=== PATIENT | male | born 1945 | race Caucasian/White ===

== ENCOUNTER → 2017-02-21 | Outpatient (CLI) | payer OTHER ==
[~2017-02-21] MED LIST: ALLOPURINOL 10100 M2 PO; ASPIR 8181 MG PO; BEE POLLEN580 MG PO; CLARITIN10 MG PO; COZAAR 50 MG TA50 M2 PO; LASIX 20 MG TAB20 MG PO; LEVOTHYROXINE0.05 MG PO; MOBIC15 MG PO; OMEPRAZOLE 20 M20 M1 PO; REQUIP3 MG PO; TOPROL XL50 MG PO; TRAMADOL 50 MG50 MG PO
== END ==
LOC: CAT 02:13
DX: M47.816 Spondylosis without myelopathy or radiculopathy, lumbar region (principal); M54.2 Cervicalgia; M77.8 Other enthesopathies, not elsewhere classified

== ENCOUNTER → 2017-03-08 | Outpatient (CLI) | payer OTHER ==
[~2017-03-08] VITALS: Ht 172.7 cm; Wt 117.9 kg
[~2017-03-08] MED LIST changes: +COUMADIN 5 MG TA5 M1 PO; +FLECAINIDE ACET50 M1 PO; +MEDROL DOSPAK21 TA1 PO; +NEURONTIN 300300 M1 PO; +VOLTAREN GEL 1100 GM TOP
--- NOTE | ~2017-03-08 | HPC ---
[facility] [address] [place] [address] PAIN MANAGEMENT CONSULTATION Name: LUPERADHA Lynne Room #: REG BLUE Rupal#: [id number] Admission: 03/08/17 Attend Phys: Palmer Dejesus DO Discharge: Date of : 45 Report #: [id number] THIS REPORT FOR: //name// CC: Gonzalez Dejesus The patient is a very pleasant 72-year-old gentleman seen in consultation at the request of Dr. Adame for assistance with management of right cervical radicular pain. The patient notes paresthesia going into the thumb and index finger on this side present for about the past 2 months. It sounds like he has had multiple steroid injections with good efficacy. Last bilateral shoulder injection was about 2 months ago. He had also developed exacerbation of gout in his right foot and did have an IM injection of steroid on Saturday. He notes with this the cervical radicular symptoms are improving somewhat, but they remain problematic with tingling, paresthesia and some subjective loss of strength in that right hand. He notes pain is rhythmic and sharp, rates it anywhere from a 4-8 on a 0-10 visual analog scale. Denies any myelopathic or lower extremity symptoms. REVIEW OF SYSTEMS: Complete review of systems attached to chart and gone over with the patient. The patient is , seen in the company of his who is supportive. Smokes which he has for 30 years. He drinks alcohol socially. History of a pacemaker for sick sinus syndrome, recently diagnosed with atrial fibrillation and started on Coumadin. History of hypertension, treated with metoprolol, losartan and Lasix, hypothyroid for which he takes Synthroid, gastroesophageal reflux for which he takes omeprazole. Does have significant restless leg syndrome, takes ReQuip 3 mg at bedtime with some efficacy. As noted in the chief complaint, has history of gout, right ankle and takes allopurinol for this. He was taking Mobic for pain, but had to stop this when he started the warfarin for his atrial fibrillation. Does take tramadol for pain. Surgical history was reviewed, he has had a colostomy in 1984 for diverticulitis, had the colostomy reversed several months later. He has had colon resection again in 2008 and in 2009. He has been off work for 6 weeks due to pain. 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 Showed me pictures of his 1959 Corvette and tells me he is restoring his 65 [place] [employer] for his . PHYSICAL EXAMINATION: Reveals a pleasant 72-year-old gentleman, 5 feet 8 inches, 260 pounds, relatively obese with a BMI of 39.5 kilograms per meter squared. Significant endomorphic stature. Blood pressure is 159/79, pulse 82, respirations 20. Cranial nerves 2-12 are grossly intact. Pupils are equal, reactive to light and accommodation. Extraocular muscles are intact. Thyroid is modestly enlarged, no nodules are noted. Upper extremity strength had [facility] [address] [place] [address] PAIN MANAGEMENT CONSULTATION Name: RADHA ANDRADE Room #: JANAY Goldsmith#: [id number] Admission: 03/08/17 Attend Phys: Palmer Dejesus DO Discharge: Date of : 45 Report #: [id number] diminished abduction. Does have some tenderness in the shoulders. Right biceps reflex is absent, is 1/4 in the left. Brachioradialis reflexes are 1/4 and symmetric. Does have little intention tremor primarily noted in the right arm. Grasp is symmetric. Tinel's is negative. Heart is regular and rhythmical at this time. No murmurs noted. I did note history of atrial fibrillation by history. Lungs are clear to auscultation. Again the abdomen shows an endomorphic build. Rises from chair using armrest. Gait is tandem. Lower extremity strength is preserved. Does have classic osteoarthritic nodules on the fingers with significant increase in hand pain subsequent to discontinuation of meloxicam. Diagnostic studies include MRI from 02/21/2017 noting diffuse spondylosis with mild subluxation. Mild to moderate canal narrowing at C4-C5 and C5-C6. C5-6 notes right neural foraminal narrowing as well. Does have a little left paramedian disk, the disk is contralateral to the primary pain presenting in a right C6 radiculopathy. ASSESSMENT: 1. Symptomatic cervical radiculopathy. 2. Osteoarthritis affecting bilateral hands. 3. Atrial fibrillation requiring anticoagulation. RECOMMENDATIONS: The patient would likely benefit from fluoroscopic-guided cervical epidural injection and will need to be off his Coumadin for 5 days. He can take single aspirin daily for this. Again, I did note a regular rhythm at this time. He has a long history of colon issues and needs colonoscopy shortly. I suggested we may be able to coordinate timing of our intervention with his procedure. I would like to have patient get off his Coumadin for 5 days, do the cervical epidural injection, have him start his colon prep and get this colonoscopy the subsequent day. I have also taken the liberty of writing for Voltaren gel for topical treatment of his osteoarthritic hands and we have taken the liberty of starting gabapentin 300 mg at bedtime for neuropathic component of cervical radiculopathy. Thank you for allowing me to participate in the patient's care. We will plan on moving forward with cervical epidural injection under fluoroscopy if we can coordinate with his GI doctor and get approval from his clinical specialist medical device to be off of Coumadin for 5 days. I will keep you abreast of his progress. By: [id number] Palmer Dejesus, /nt
[2017-03-08 13:27] VITALS: BP 159/79
== END ==
LOC: PAIN 06:46
DX: M54.12 Radiculopathy, cervical region (principal); I48.91 Unspecified atrial fibrillation; M19.042 Primary osteoarthritis, left hand; M19.041 Primary osteoarthritis, right hand; Z87.891 Personal history of nicotine dependence; Z90.49 Acquired absence of other specified parts of digestive tract

== ENCOUNTER → 2017-04-04 | Outpatient (CLI) | payer OTHER ==
[~2017-04-04] VITALS: Ht 172.7 cm; Wt 117.0 kg
--- NOTE | ~2017-04-04 | HPC ---
[facility] [place] [address] PAIN MANAGEMENT CONSULTATION Name: RADHA ANDRADE Room #: REG BLUE Goldsmith#: [id number] Admission: 04/04/17 Attend Phys: Palmer Dejesus DO Discharge: Date of : 45 Report #: [id number] THIS REPORT FOR: //name// CC: Gonzalez Dejesus The patient is a pleasant 72-year-old gentleman, prior seen in the pain clinic 03/08/2017, diagnosed with symptomatic cervical radiculopathy. We suggested cervical epidural injection under fluoroscopy today. He has atrial fibrillation and was on an anticoagulant. He has been off his Coumadin now for about 10 days. He is off for 5 days prior to colonoscopy which was done on Saturday. He presents to pain clinic today for epidural injection under fluoroscopy. We will have the patient resume Coumadin tomorrow. INR 5 days ago was 1.14. ASSESSMENT: Symptomatic cervical radiculopathy. PROCEDURE: Cervical epidural injection under fluoroscopy. PROCEDURE NOTE: After written and informed consent was obtained including risk of dural puncture, spinal cord trauma, paralysis and increased pain, the patient was taken to the fluoroscopy suite and placed in the prone position, with appropriate abdominal bolstering, neck was flexed, palms under the thighs. Skin was prepped with ChloraPrep. Sterile draping was applied. Skin wheal with 1% Xylocaine was raised. A 22-gauge 3-1/2 inch epidural Tuohy needle was placed via a midline approach at the C7-T1 interspace, advanced under biplanar fluoroscopy using continuous loss of resistance. With appropriate loss of resistance at the expected depth on lateral view, the glass loss of resistance syringe was disconnected. A low volume extension tubing was connected to the needle and a 5 mL syringe. Negative aspiration for cerebrospinal fluid or blood was noted. A 1 mL of Omnipaque was injected which showed spread within the epidural space on biplanar fluoroscopy. This was followed with 80 mg of triamcinolone plus 1 mL of 1.5% preservative Xylocaine. Needle was withdrawn to the interspinous ligament, 0.5 mL of Xylocaine was used to flush the needle. The needle was then completely withdrawn. The area was cleansed. Band-Aid was applied. The patient was allowed to move off the procedure table and ambulated to the recovery room, monitored for an appropriate period of time, discharged in good and stable condition. The patient is to resume Coumadin tomorrow. <ELECTRONICALLY SIGNED> By: Palmer Dejesus DO 04/05/17 [id number] Palmer Dejesus DO /nt
[2017-04-04 09:45] VITALS: BP 123/82
== END ==
LOC: PAIN 07:26
DX: M54.12 Radiculopathy, cervical region (principal); I48.91 Unspecified atrial fibrillation; Z79.01 Long term (current) use of anticoagulants; I10 Essential (primary) hypertension; Z87.891 Personal history of nicotine dependence

== ENCOUNTER → 2017-06-20 | Outpatient (CLI) | payer OTHER ==
[~2017-06-20] VITALS: Ht 172.7 cm; Wt 117.7 kg
[2017-06-20 10:56] VITALS: BP 145/76
== END | disposition home or self-care (01) ==
LOC: PAIN 07:30
DX: M54.12 Radiculopathy, cervical region (principal); I48.91 Unspecified atrial fibrillation; Z98.890 Other specified postprocedural states; Z87.891 Personal history of nicotine dependence; Z79.899 Other long term (current) drug therapy; Z79.01 Long term (current) use of anticoagulants

== ENCOUNTER → 2017-08-01 | Outpatient (CLI) | payer OTHER ==
[~2017-08-01] VITALS: Ht 172.7 cm; Wt 114.5 kg
--- NOTE | ~2017-08-01 | HPC ---
[facility] [place] [address] PAIN MANAGEMENT CONSULTATION Name: LUPERADHA Lynne Room #: REG ZIGGYCayla Goldsmith#: [id number] Admission: 08/01/17 Attend Phys: Palmer Dejesus DO Discharge: Date of : 45 Report #: [id number] THIS REPORT FOR: //name// CC: Gonzalez Dejesus DATE OF SERVICE: 08/01/2017 The patient is a 72-year-old gentleman initially seen 03/08/2017, diagnosed with symptomatic cervical radiculopathy, DJD affecting hands and shoulder, atrial fibrillation on anticoagulant. We proceeded with cervical epidural injection under fluoroscopy, off of Coumadin on 04/04/2017. He was seen in followup 06/20/2017. He had excellent relief following the injection in April. Symptoms have begun to recur. The patient had been off of his Coumadin for 5 days at that time. INR is 1.0. We repeated cervical epidural injection at that time. Again, he had had some 95% relief for greater than 6 weeks with the first injection. Returns to pain clinic today noting that the right cervical radicular symptoms are essentially gone, he initially presented with paresthesia going into the right thumb and index finger. Those symptoms are resolved; however, he still has pain in the right shoulder. Physical exam shows cervical range of motion is actually fairly good. Lhermitte's is negative. Active range of motion of the shoulder causes pain as does passive range of motion. Strength is symmetric. Point tender over the AC joint. ASSESSMENT: 1. Symptomatic cervical radiculopathy symptoms essentially resolved following 2 cervical epidural injections. 2. New diagnosis of right shoulder degenerative joint disease. RECOMMENDATIONS: The patient has been off his Coumadin. His INR is 1.0. We elected to proceed with right shoulder injection under fluoroscopy today. Follow up with [facility] for consideration for surgical intervention right shoulder if injection does not afford adequate relief, PROCEDURE: Right shoulder joint injection under fluoroscopy. PROCEDURE NOTE: After written informed consent was obtained, the patient was taken to the fluoroscopy suite and placed in prone position. After sterile prep and drape, skin was raised. A 22-gauge stylet needle was placed to contact proximal aspect of the right humerus. Negative aspiration was accomplished. 1 mL of Omnipaque was injected, which showed spread within the glenohumeral joint. This was followed with 40 mg triamcinolone plus 2 mL of 0.5% preservative-free bupivacaine. Needle was removed, area was cleansed, Band-Aids applied. The patient monitored for an appropriate period of time, [place] [address] PAIN MANAGEMENT CONSULTATION Name: RADHA ANDRADE Room #: REG [facility] Rupal#: [id number] Admission: 08/01/17 Attend Phys: Palmer Dejesus DO Discharge: Date of : 45 Report #: [id number] stable condition, told to use ice to the area today, watch for signs of infection. Resume Coumadin. Follow up as needed. By: [id number] Palmer Dejesus DO /nt
[2017-08-01 10:16] VITALS: BP 121/69
== END | disposition home or self-care (01) ==
LOC: PAIN 07:13
DX: M19.011 Primary osteoarthritis, right shoulder (principal); M54.12 Radiculopathy, cervical region; Z87.891 Personal history of nicotine dependence

== ENCOUNTER → 2017-10-01 | Outpatient (CLI) | payer OTHER | END | disposition home or self-care (01) | LOC: RAD 10:27 | DX: M25.511 Pain in right shoulder (principal); Z79.899 Other long term (current) drug therapy; Z79.01 Long term (current) use of anticoagulants ==

== ENCOUNTER → 2018-07-08 | Outpatient (CLI) | payer OTHER ==
[2018-07-08 09:33] LABS: ABSOLUTE NEUTROPHILS 5.9 thou/uL (1.4-8.2); BASOPHILS 0.9 % (0.0-2.0); EOSINOPHILS 2.4 % (0.0-3.0); HEMATOCRIT 40.2 % (42.0-52.0); HEMOGLOBIN 13.7 gm/dL (14.0-18.0); LYMPHOCYTES 19.1 % (24.0-44.0); MONOCYTES 9.7 % (1.0-8.0); PLATELET COUNT 316 thou/uL (150-400); POLYS 67.9 % (36.0-66.0); RBC 4.42 mil/uL (4.50-6.00); RDW 14.7 % (10.5-14.5); WBC 8.7 thou/uL (4.0-11.0)
[2018-07-08 09:42] LABS: ALBUMIN 3.5 g/dL (3.4-5.0); CREATININE 1.3 mg/dL (0.7-1.3); POTASSIUM 4.4 mmol/L (3.5-5.1); TOTAL BILIRUBIN 0.3 mg/dL (<0.1-1.0); TOTAL PROTEIN 7.5 g/dL (6.4-8.2)
== END ==
LOC: CAT 08:49
PROVIDERS: Internal Medicine Cardiovascular Disease
DX: I48.91 Unspecified atrial fibrillation (principal); I25.10 Atherosclerotic heart disease of native coronary artery without angina pectoris; M47.814 Spondylosis without myelopathy or radiculopathy, thoracic region; A15 Respiratory tuberculosis; R59.0 Localized enlarged lymph nodes; R91.1 Solitary pulmonary nodule; I10 Essential (primary) hypertension; E03.9 Hypothyroidism, unspecified; Z87.891 Personal history of nicotine dependence

== ENCOUNTER → 2019-12-30 | Outpatient (CLI) | payer OTHER ==
[~2019-12-30] MED LIST changes: -LEVOTHYROXINE0.05 MG PO; +NORVASC5 MG PO; +PRADAXA150 MG PO; +SYNTHROID75 MCG PO
== END ==
LOC: SJCVCIMAG 12:22
DX: Z45.018 Encounter for adjustment and management of other part of cardiac pacemaker (principal); I48.0 Paroxysmal atrial fibrillation; E78.5 Hyperlipidemia, unspecified; I49.5 Sick sinus syndrome; I10 Essential (primary) hypertension; D68.59 Other primary thrombophilia; K21.9 Gastro-esophageal reflux disease without esophagitis; Z79.899 Other long term (current) drug therapy; Z87.891 Personal history of nicotine dependence; Z82.49 Family history of ischemic heart disease and other diseases of the circulatory system

== ENCOUNTER → 2020-03-21 | Outpatient (CLI) | payer OTHER | LOC: SJCVCIMAG 10:33 | DX: Z01.810 Encounter for preprocedural cardiovascular examination (principal); I48.0 Paroxysmal atrial fibrillation; I10 Essential (primary) hypertension; E78.5 Hyperlipidemia, unspecified; Z87.891 Personal history of nicotine dependence; Z79.899 Other long term (current) drug therapy ==

== ENCOUNTER → 2020-07-13 | Outpatient (CLI) | payer OTHER | LOC: SJCVC 13:54 | PROVIDERS: ATTEND Internal Medicine Cardiovascular Disease | DX: R94.31 Abnormal electrocardiogram [ECG] [EKG] (principal); I49.5 Sick sinus syndrome; I10 Essential (primary) hypertension; I48.0 Paroxysmal atrial fibrillation; Z79.899 Other long term (current) drug therapy; Z87.891 Personal history of nicotine dependence ==

== ENCOUNTER → 2020-09-12 | Outpatient (CLI) | payer OTHER | LOC: SJCVC 14:57 | PROVIDERS: ATTEND Internal Medicine Cardiovascular Disease | DX: I48.0 Paroxysmal atrial fibrillation (principal); I49.5 Sick sinus syndrome; I10 Essential (primary) hypertension; E78.5 Hyperlipidemia, unspecified; Z95.0 Presence of cardiac pacemaker; Z79.899 Other long term (current) drug therapy; Z87.891 Personal history of nicotine dependence ==

== ENCOUNTER → 2021-01-03 | Outpatient (CLI) | payer OTHER | LOC: SJCVC 11:35 | PROVIDERS: ATTEND Internal Medicine Cardiovascular Disease | DX: I25.10 Atherosclerotic heart disease of native coronary artery without angina pectoris (principal); I48.0 Paroxysmal atrial fibrillation; E78.00 Pure hypercholesterolemia, unspecified; D68.59 Other primary thrombophilia; I49.5 Sick sinus syndrome; I10 Essential (primary) hypertension; K21.9 Gastro-esophageal reflux disease without esophagitis; E66.9 Obesity, unspecified; Z90.49 Acquired absence of other specified parts of digestive tract; Z95.0 Presence of cardiac pacemaker; Z98.890 Other specified postprocedural states; Z79.01 Long term (current) use of anticoagulants; Z79.899 Other long term (current) drug therapy; Z87.891 Personal history of nicotine dependence; Z82.49 Family history of ischemic heart disease and other diseases of the circulatory system ==

== ENCOUNTER → 2021-07-13 | Outpatient (CLI) | payer OTHER, MEDICARE | LOC: SJCVC 12:47 | PROVIDERS: ATTEND Internal Medicine Cardiovascular Disease | DX: R94.31 Abnormal electrocardiogram [ECG] [EKG] (principal); I48.0 Paroxysmal atrial fibrillation; I49.5 Sick sinus syndrome; E78.00 Pure hypercholesterolemia, unspecified; I10 Essential (primary) hypertension; Z95.0 Presence of cardiac pacemaker; K21.9 Gastro-esophageal reflux disease without esophagitis; E66.9 Obesity, unspecified; Z79.899 Other long term (current) drug therapy; Z87.891 Personal history of nicotine dependence; Z72.89 Other problems related to lifestyle ==

== ENCOUNTER → 2021-10-03 | Outpatient (CLI) | payer OTHER, MEDICARE | LOC: SJCVCIMAG 09:45 | PROVIDERS: ATTEND Internal Medicine Cardiovascular Disease | DX: I34.0 Nonrheumatic mitral (valve) insufficiency (principal); R94.31 Abnormal electrocardiogram [ECG] [EKG]; I48.0 Paroxysmal atrial fibrillation; I10 Essential (primary) hypertension; E78.00 Pure hypercholesterolemia, unspecified; I49.5 Sick sinus syndrome; K21.9 Gastro-esophageal reflux disease without esophagitis; Z95.0 Presence of cardiac pacemaker; Z87.891 Personal history of nicotine dependence; Z72.89 Other problems related to lifestyle; Z79.899 Other long term (current) drug therapy; Z68.30 Body mass index [BMI] 30.0-30.9, adult; Z82.49 Family history of ischemic heart disease and other diseases of the circulatory system; Z51.81 Encounter for therapeutic drug level monitoring; Z79.01 Long term (current) use of anticoagulants ==